=== PATIENT | male | born 1970 | race Caucasian/White ===

== ENCOUNTER 2019-04-25 06:22 | Emergency (ER) | payer BC ==
[2019-04-25] MEDS ORDERED: ONDANSETRON HCL INJ/PF 4 MG/2 ML SDV IV ONE (06:46)
[2019-04-25] MEDS ORDERED: METOPROLOL TARTRATE PF/INJ 5 MG/5 ML SDV IV ONE (06:46)
[2019-04-25] MEDS ORDERED: MORPHINE SULFATE 10 MG/ML INJ IV ONE (06:46)
[2019-04-25 06:57] LABS: ABSOLUTE EOSINOPHILS # (AUTO) 0.1 10^3/uL (0.0-0.6); ABSOLUTE LYMPHOCYTES (AUTO) 4.1 10^3/uL (0.5-4.7); ABSOLUTE MONOCYTES (AUTO) 0.5 10^3/uL (0.1-1.4); ABSOLUTE NEUT (AUTO) 2.9 10^3/uL (1.7-8.2); BASOPHILS % (AUTO) 0.1 % (0-2); EOSINOPHILS % (AUTO) 0.8 % (0-6); HEMOGLOBIN 13.6 g/dL (13.5-17.0); LYMPHOCYTES % (AUTO) 53.8 % (13-45); MEAN CORPUSCULAR HEMOGLOBIN 30.4 pg (27.0-33.4); MEAN CORPUSCULAR HGB CONC 35.8 g/dL (32.0-36.0); MEAN CORPUSCULAR VOLUME 85 fl (80-97); MONOCYTES % (AUTO) 6.8 % (3-13); PLATELET COUNT 206 10^3/uL (150-450); RED BLOOD COUNT 4.48 10^6/uL (4.35-5.55); RED CELL DISTRIBUTION WIDTH 13.8 % (11.5-14.0); SEGMENTED NEUTROPHILS % (AUTO) 38.5 % (42-78); TOTAL CELLS COUNTED % (AUTO) 100 %; WHITE BLOOD COUNT 7.6 10^3/uL (4.0-10.5)
[2019-04-25 07:10] LABS: ALKALINE PHOSPHATASE 65 U/L (38-126); ANION GAP 10 (5-19); ASPARTATE AMINO TRANSFERASE 48 U/L (17-59); BILIRUBIN,TOTAL 0.5 mg/dL (0.2-1.3); BLOOD UREA NITROGEN 13 mg/dL (7-20); CALCIUM 9.2 mg/dL (8.4-10.2); CARBON DIOXIDE 24 mmol/L (22-30); CHLORIDE 105 mmol/L (98-107); CREATINE KINASE 79 U/L (55-170); GLUCOSE 111 mg/dL (75-110); POTASSIUM 4.2 mmol/L (3.6-5.0); TOTAL PROTEIN 6.2 g/dL (6.3-8.2)
[2019-04-25 07:21] LABS: CREATINE KINASE MB 0.77 ng/mL (<4.55)
[2019-04-25 07:23] LABS: TROPONIN I < 0.012 ng/mL
--- NOTE | 2019-04-25 07:31 | EKG REPORT ---
SEVERITY:- NORMAL ECG - SINUS RHYTHM : Confirmed by: Boogie Bravo MD 25-Apr-2019 07:30:33
--- NOTE | 2019-04-25 07:41 | ER Document Report ---
Entered by LOLA RAWLS SCRIBE 04/25/19 0646 Acting as scribe for:DASHA KRAMER MD ED Cardiac - General Chief Complaint: Chest Pain Stated Complaint: CHEST PAIN Time Seen by Provider: 04/25/19 06:35 Primary Care Provider: ROYA RODRIGEUZ DC [[facility]] - Follow up as needed Mode of Arrival: Ambulatory Information source: Patient Notes: This 48 year old male patient with a history of 2 ND and 4 stents presents to the ED today with complaints of right-sided chest pain that began around 6:00 AM this morning. Patient states that he was sitting up on the couch watching the news after only a couple hours of sleep when the pain came on suddenly. Patient reports the pain initially was a 5/5. He took a total of 6 nitroglycerin and 5 baby aspirin. He states that he did not really notice improvement while he was taking the nitroglycerin. At this time the pain is down to 1/5, but he is not sure if it is due to the nitroglycerin or just the amount of time that has transpired since the pain first started. Patient states that he had a STEMI on 01/01/19 and was flown to [facility] where 2 more stents were placed; patient had 2 stents placed on 02/07/11 at [facility] after a ND. Patient was seen here on 12/04/16 for similar symptoms where he left AMA and later had a cath done at [place] that showed that these 2 stents he had at that time were still both patent. Patient states that he has a back surgery coming up due to bulging discs. Patient denies any nausea. TRAVEL OUTSIDE OF THE [place] IN LAST 30 DAYS: No - Related Data Allergies/Adverse Reactions: Tetanus Vaccines and Toxoid [Tetanus] Allergy (Unknown, Verified 02/10/11 18:56) Home Medications: nitro Past Medical History - General Information source: Patient, [facility] Records - Social History Smoking Status: Former Smoker Cigarette use (# per day): No Chew tobacco use (# tins/day): No Smoking Education Provided: No Frequency of alcohol use: None Lives with: Spouse/Significant other Family History: Reviewed & Not Pertinent Patient has suicidal ideation: No Patient has homicidal ideation: No - Past Medical History Cardiac Medical History: Reports: Hx Coronary Artery Disease, Hx Heart Attack - x2, Hx Hypercholesterolemia, Hx Hypertension Past Surgical History: Reports: Hx Coronary Stent - x4 total d/t ND x2; 2 placed 02/07/2011 at [facility]. 2 more placed on 01/01/19 Review of Systems - Review of Systems Constitutional: No symptoms reported EENT: No symptoms reported Cardiovascular: See HPI, Chest pain Respiratory: No symptoms reported Gastrointestinal: See HPI. denies: Nausea Genitourinary: No symptoms reported Male Genitourinary: No symptoms reported Musculoskeletal: No symptoms reported Skin: No symptoms reported Hematologic/Lymphatic: No symptoms reported Neurological/Psychological: No symptoms reported -: Yes All other systems reviewed and negative Physical Exam - Vital signs Vitals: Resp 14 04/25/19 06:35 - General General appearance: Alert, Other - Patient is sitting up due to bulging discs. - HEENT Head: Normocephalic, Atraumatic Eyes: Normal Pupils: PERRL - Respiratory Respiratory status: No respiratory distress Chest status: Tender - Anterior chest wall tenderness on the right side with palpation Breath sounds: Normal Chest palpation: Normal - Cardiovascular Rhythm: Regular Heart sounds: Normal auscultation Murmur: No - Abdominal Inspection: Normal Distension: No distension Bowel sounds: Normal Tenderness: Nontender - No RUQ tenderness with palpation., Other - Abdomen soft Organomegaly: No organomegaly - Back Back: Normal, Nontender - Extremities General upper extremity: Normal inspection General lower extremity: Normal inspection - Neurological Neuro grossly intact: Yes - Psychological Associated symptoms: Normal affect, Normal mood - Skin Skin Temperature: Warm Skin Moisture: Dry Skin Color: Normal Course - Re-evaluation Re-evalutation: 04/25/19 08:26 Pain is gone at this time. Patient feels better. There is still some right chest wall tenderness to palpate. 04/25/19 12:28 Patient has had a total of 3 troponins with the last one approximately 5 hours after the onset of pain. All the troponins are negative. Unfortunately, the patient's cardiology office is closed for lunch at this time, he does not want to wait for me to discuss the case with his doctor. He wants to leave and he will call his supervisor [employer] on his cell phone. Given that his EKG is normal, his serial troponins are negative, and his pain appears to be chest wall in origin at this time, and that the nitroglycerin he took did not seem to have any effect on his discomfort, I think it is safe to discharge him to follow-up with his supervisor [employer] today as he plans. - Vital Signs Vital signs: Temp Pulse Resp BP Pulse Ox 98.7 F 64 19 144/90 H 98 04/25/19 06:46 04/25/19 06:46 04/25/19 11:01 04/25/19 11:01 04/25/19 11:01 - Laboratory Result Diagrams: 04/25/19 06:39 04/25/19 06:39 Laboratory results interpreted by me: 04/25/19 04/25/19 06:39 06:39 Lymph % (Auto) 53.8 H Seg Neutrophils % 38.5 L Glucose 111 H Total Protein 6.2 L - Diagnostic Test Radiology reviewed: Image reviewed, Reports reviewed - EKG Interpretation by Me EKG shows normal: Sinus rhythm, [place], Intervals, QRS Complexes, ST-T Waves Rate: Normal - 69 Rhythm: NSR Discharge - Discharge Clinical Impression: Chest pain Qualifiers: Chest pain type: unspecified Qualified Code(s): R07.9 - Chest pain, unspecified Condition: Stable Disposition: HOME, SELF-CARE Additional Instructions: Your EKG today was normal. Serial troponins were undetectable. Your physical exam shows some chest wall tenderness. I cannot entirely exclude a cardiac cause of your chest pain. You have indicated that you were going to call your supervisor [employer] on his cell phone to discuss your case when you are discharged. You should follow-up with your supervisor [employer] today and review your visit. RETURN TO THE EMERGENCY ROOM IF ANY NEW OR WORSENING SYMPTOMS. Referrals: CARMINA MILNER MD [NO LOCAL MD] - 04/25/19 Scribe Attestation: 04/25/19 08:06 I personally performed the services described in the documentation, reviewed and edited the documentation which was dictated to the scribe in my presence, and it accurately records my words and actions. I personally performed the services described in the documentation, reviewed and edited the documentation which was dictated to the scribe in my presence, and it accurately records my words and actions.
--- NOTE | 2019-04-25 07:57 | RADIOLOGY REPORT (SQ) ---
EXAM DESCRIPTION: X-ray single view chest. CLINICAL HISTORY: 48 years Male, chest pain COMPARISON: 12/04/2016 and 02/10/2011 TECHNIQUE: Single portable x-ray view of the chest performed on 04/25/2019 6:58 AM FINDINGS: The lungs are well expanded and are clear. There is no evidence of a pneumothorax. The cardiac silhouette is normal in size and configuration. The mediastinal contours are normal. No acute osseous abnormality is identified. No focal soft tissue abnormalities are seen. Lines and tubes: None. IMPRESSION: No evidence of acute intrathoracic disease.
[2019-04-25 12:40] VITALS: BP 144/91
== END 2019-04-25 12:41 | disposition home or self-care (01) ==
LOC: ER 06:22
DX: R07.9 Chest pain, unspecified (principal); Z79.899 Other long term (current) drug therapy; Z88.8 Allergy status to other drugs, medicaments and biological substances; Z87.891 Personal history of nicotine dependence; I25.10 Atherosclerotic heart disease of native coronary artery without angina pectoris; I25.2 Old myocardial infarction; I10 Essential (primary) hypertension
CPT/HCPCS: 93005; 99285; 96374; 36415; 82553; 82550; 85025; 80053; 84484; 71045; 93010; J3490